=== PATIENT | male | born 1990 | race Caucasian/White ===

== ENCOUNTER 2021-09-23 03:01 | Emergency (ER) | payer OTHER ==
[~2021-09-23] VITALS: Ht 162.6 cm; Wt 77.1 kg
[2021-09-23 03:05] VITALS: BP_SYST 143
--- NOTE | 2021-09-23 03:05 | NUR ---
Patient triaged and placed in waiting room. VSS and patient appears in no acute distress at this time. Accompanied by FAM MEMBER, awaiting available bed, and MD notified of need for MSE.
--- NOTE | 2021-09-23 03:31 | NUR ---
ER examining patient in the waiting room.
[2021-09-23] MEDS ORDERED: ASPIRIN 81 MG TAB.CHEW PO ONE (03:45)
--- NOTE | 2021-09-23 04:25 | NUR ---
PATIENT RESTING IN BED WITH EYES OPEN, NO C/O PAIN OR S/S OF DISCOMFORT. PATIENT'S CHEST RISE AND FALL SYMMETRICAL. BED IN LOW AND LOCKED POSITION.
[2021-09-23 04:38] LABS: BASOPHILS # (AUTO) 0.1 K/uL (0.0-0.2); BASOPHILS % (AUTO) 1.9 % (0.0-2.0); EOSINOPHILS % (AUTO) 0.8 % (0.0-4.0); HEMATOCRIT 45.7 % (36-54); HEMOGLOBIN 15.3 g/dL (14.0-18.0); LYMPHOCYTES # (AUTO) 1.7 K/uL (1.0-5.5); LYMPHOCYTES % (AUTO) 30.3 % (20.5-51.5); MEAN CORPUSCULAR HEMOGLOBIN 31 pg (27-31); MEAN CORPUSCULAR HGB CONC 34 % (32-36); MEAN CORPUSCULAR VOLUME 91 fL (79.0-98.0); MONOCYTES # (AUTO) 0.3 K/uL (0.0-1.0); MONOCYTES % (AUTO) 5.9 % (1.7-9.3); NEUTROPHILS # (AUTO) 3.5 K/uL (1.8-7.7); NEUTROPHILS % (AUTO) 61.1 % (40.0-70.0); PLATELET COUNT (AUTO) 167 K/uL (130-430); RED BLOOD CELL COUNT(AUTO) 5.03 MIL/uL (4.2-6.2); RED CELL DISTRIBUTION WIDTH 12.8 % (9.0-15.0); WHITE BLOOD COUNT (AUTO) 5.7 K/uL (4.8-10.8)
--- NOTE | 2021-09-23 05:08 | NUR ---
Patient to ER bed SOLITARIO to gon for evaluation. Side rails up. Report given to QUOC MAYER(REG).
[2021-09-23 05:11] LABS: CALCIUM 9.9 mg/dL (8.4-11.0); CREATININE 0.84 mg/dL (0.55-1.30); POTASSIUM 3.7 mmol/L (3.5-5.1)
--- NOTE | 2021-09-23 05:15 | NUR ---
PATIENT RESTING IN BED WITH EYES OPEN, NO C/O PAIN OR S/S OF DISCOMFORT. PATIENT'S CHEST RISE AND FALL SYMMETRICAL. BED IN LOW AND LOCKED POSITION.
[2021-09-23 05:26] LABS: ALBUMIN 4.3 g/dL (3.4-4.8); TOTAL BILIRUBIN 0.5 mg/dL (0.0-1.0)
[2021-09-23] MEDS ORDERED: NAPR-688 PO (06:23)
[2021-09-23 06:29] VITALS: BP_SYST 112
--- NOTE | 2021-09-23 06:30 | NUR ---
Patient given written and verbal discharge instructions and verbalizes understanding. ER MD DR Gibbons discussed with patient the results and treatment provided. Patient in stable condition. ID arm band removed. Patient educated on pain management and to follow up with PMD. Pain Scale 0/10. Opportunity for questions provided and answered. Medication side effect fact sheet provided. Patient A/Ox4. Patient left with family and all belongings. Patient walks with strong gait.
[2021-09-23 06:40] LABS: BARBITURATE, URINE NEGATIVE (NEG <=200); BENZODIAZEPINE, URINE NEGATIVE (NEG <=150); METHAMPHETAMINES SCREEN,URINE NEGATIVE (NEG <=500); URINE AMPHETAMINE NEGATIVE (NEG <=500); URINE METHADONE NEGATIVE (NEG <=200)
[2021-09-23 06:41] LABS: CANNABINOID, URINE NEGATIVE (NEG <=50); COCAINE, URINE NEGATIVE (NEG <=150); OPIATE, URINE NEGATIVE (NEG <=100); PHENCYCLIDINE SCREEN,URINE NEGATIVE (NEG <=25); UR TRICYCLIC ANTIDEPRESSANTS NEGATIVE (NEG <=300); URINE OXYCODONE SCREEN NEGATIVE (NEG <=100); URINE PROPOXYPHENE SCREEN NEGATIVE (NEG <=300)
== END 2021-09-23 06:29 | disposition home or self-care (01) ==
LOC: SED 03:01
DX: R07.2 Precordial pain (principal); Z79.899 Other long term (current) drug therapy
CPT/HCPCS: 36415; 71045; 80053; 80307; 83880; 84484; 85025; 93005; 99285